=== PATIENT | female | born 1955 | race Caucasian/White ===

== ENCOUNTER 2018-04-17 12:20 | Emergency (ER) | payer MEDICAID, SELFPAY ==
[2018-04-17 12:24] VITALS: BP 136/77; PULSE 64; RESP 14; TEMP 36.6; O2SAT 96; BMI 27.4
[2018-04-17 12:28] VITALS: BP 136/77; PULSE 60; RESP 17; O2SAT 98
[2018-04-17 12:30] LABS: Bedside Glucose 92 mg/dL (70-110)
--- NOTE | 2018-04-17 12:49 | CT_ITS ---
STUDY: CTA NECK WITH CONTRAST REASON FOR EXAM: Female, 62 years old. Numbness. Recent CVA with right carotid arterial stenting. RADIATION DOSAGE (If Supplied By Facility): CTDIvol = ( 17.05 ) mGy, DLP = ( 1419.99 ) mGycm TECHNIQUE: CT angiography with multi-detector data acquisition was performed from the aortic arch to the skull base following intravenous administration of Isovue 370 100 IV. MIP images were reconstructed from the axial data set. Post-processing of the angiographic images was performed, with multiplanar reformation and 3D reconstruction. Individualized dose optimization techniques were used for this CT. COMPARISON: None. FINDINGS: Focal hypodensity with calcification in the inferior aspect of the right lobe of the thyroid. AORTIC ARCH: There is atherosclerotic calcific plaque formation of the aortic arch and great vessels arising from the aortic arch, without a hemodynamically significant stenosis. There is a normal origin of the brachiocephalic, left common carotid, and left subclavian arteries. RIGHT CAROTID ARTERIES: Normal right common carotid artery (CCA). Normal right common carotid bulb. Normal origin of the right internal carotid (ICA) artery without a hemodynamically significant stenosis. And endovascular stent is seen at the origin of the right internal carotid artery as well as proximal portion of the right internal carotid artery. No significant stenosis is seen. Normal visualized cervical portion of the right internal carotid artery. Normal origin of the right external carotid artery (ECA). LEFT CAROTID ARTERIES: Normal left common carotid artery (CCA). Normal left common carotid bulb. Normal origin of the left internal carotid (ICA) artery without a hemodynamically significant stenosis. Normal visualized cervical portion of the left internal carotid artery. Normal origin of the left external carotid artery (ECA). VERTEBRAL ARTERIES: There is enhancement within the bilateral vertebral arteries with a small left vertebral artery, and a dominant right vertebral artery. IMPRESSION: Status post stenting of the origin of the right internal carotid artery and proximal right internal carotid artery. No significant stenosis is seen. Electronically Signed: Roshan Alva, at 14:34 EST , Service support , STUDY: CTA OF THE BRAIN REASON FOR EXAM: Female, 62 years old. History of prior CVA. Recent carotid arterial stenting. RADIATION DOSAGE (If Supplied By Facility): CTDIvol = ( 17.05 ) mGy, DLP = ( 1419.99 ) mGycm TECHNIQUE: CT angiography was performed with a multi-detector CT scanner. Data acquisition was obtained from the skull base through the vertex following intravenous administration of Isovue 370 100 IV. MIP images were reconstructed from the axial data set. Post-processing of the angiographic images was performed, with multiplanar reformation and 3D reconstruction. Individualized dose optimization techniques were used for this CT. COMPARISON: None. FINDINGS: Normal bilateral petrous carotid arteries. Normal right cavernous carotid artery with a normal supraclinoid bifurcation. Normal left cavernous carotid artery with a normal supraclinoid bifurcation. Normal right A1 segments of the anterior cerebral artery. Normal left A1 segments of the anterior cerebral artery. Normal intact anterior communicating artery (ACOM). Normal bilateral A2 segments of the anterior cerebral arteries. Normal right M1 and M2 segments of the middle cerebral arteries, with a normal M1 bifurcation. Normal left M1 and M2 segments of the middle cerebral arteries, with a normal M1 bifurcation. Normal right posterior communicating artery (PCOM). Normal left posterior communicating artery (PCOM). Normal bilateral vertebral arteries. Normal basilar artery with a normal basilar bifurcation. The visualized bilateral superior cerebellar (SCA) arteries are normal. Normal bilateral P1, P2 and visualized P3 segments of the posterior cerebral arteries. There is no demonstrated aneurysm of the [place]. Cerebral atrophy. Calcification of the basal ganglia bilaterally. This a normal variant. There is evidence of old lacunar infarcts in the right basal ganglion. CT/CTA Head W/WO Contrast IMPRESSION: Normal [place] without a demonstrated aneurysm or hemodynamically significant stenosis. Electronically Signed: Roshan Alva, at 14:46 EST , Service support ,
--- NOTE | 2018-04-17 12:49 | CT_ITS ---
STUDY: CTA NECK WITH CONTRAST REASON FOR EXAM: Female, 62 years old. Numbness. Recent CVA with right carotid arterial stenting. RADIATION DOSAGE (If Supplied By Facility): CTDIvol = ( 17.05 ) mGy, DLP = ( 1419.99 ) mGycm TECHNIQUE: CT angiography with multi-detector data acquisition was performed from the aortic arch to the skull base following intravenous administration of Isovue 370 100 IV. MIP images were reconstructed from the axial data set. Post-processing of the angiographic images was performed, with multiplanar reformation and 3D reconstruction. Individualized dose optimization techniques were used for this CT. COMPARISON: None. FINDINGS: Focal hypodensity with calcification in the inferior aspect of the right lobe of the thyroid. AORTIC ARCH: There is atherosclerotic calcific plaque formation of the aortic arch and great vessels arising from the aortic arch, without a hemodynamically significant stenosis. There is a normal origin of the brachiocephalic, left common carotid, and left subclavian arteries. RIGHT CAROTID ARTERIES: Normal right common carotid artery (CCA). Normal right common carotid bulb. Normal origin of the right internal carotid (ICA) artery without a hemodynamically significant stenosis. And endovascular stent is seen at the origin of the right internal carotid artery as well as proximal portion of the right internal carotid artery. No significant stenosis is seen. Normal visualized cervical portion of the right internal carotid artery. Normal origin of the right external carotid artery (ECA). LEFT CAROTID ARTERIES: Normal left common carotid artery (CCA). Normal left common carotid bulb. Normal origin of the left internal carotid (ICA) artery without a hemodynamically significant stenosis. Normal visualized cervical portion of the left internal carotid artery. Normal origin of the left external carotid artery (ECA). VERTEBRAL ARTERIES: There is enhancement within the bilateral vertebral arteries with a small left vertebral artery, and a dominant right vertebral artery. IMPRESSION: Status post stenting of the origin of the right internal carotid artery and proximal right internal carotid artery. No significant stenosis is seen. Electronically Signed: Roshan Alva, at 14:34 EST , Service support , STUDY: CTA OF THE BRAIN REASON FOR EXAM: Female, 62 years old. History of prior CVA. Recent carotid arterial stenting. RADIATION DOSAGE (If Supplied By Facility): CTDIvol = ( 17.05 ) mGy, DLP = ( 1419.99 ) mGycm TECHNIQUE: CT angiography was performed with a multi-detector CT scanner. Data acquisition was obtained from the skull base through the vertex following intravenous administration of Isovue 370 100 IV. MIP images were reconstructed from the axial data set. Post-processing of the angiographic images was performed, with multiplanar reformation and 3D reconstruction. Individualized dose optimization techniques were used for this CT. COMPARISON: None. FINDINGS: Normal bilateral petrous carotid arteries. Normal right cavernous carotid artery with a normal supraclinoid bifurcation. Normal left cavernous carotid artery with a normal supraclinoid bifurcation. Normal right A1 segments of the anterior cerebral artery. Normal left A1 segments of the anterior cerebral artery. Normal intact anterior communicating artery (ACOM). Normal bilateral A2 segments of the anterior cerebral arteries. Normal right M1 and M2 segments of the middle cerebral arteries, with a normal M1 bifurcation. Normal left M1 and M2 segments of the middle cerebral arteries, with a normal M1 bifurcation. Normal right posterior communicating artery (PCOM). Normal left posterior communicating artery (PCOM). Normal bilateral vertebral arteries. Normal basilar artery with a normal basilar bifurcation. The visualized bilateral superior cerebellar (SCA) arteries are normal. Normal bilateral P1, P2 and visualized P3 segments of the posterior cerebral arteries. There is no demonstrated aneurysm of the [place]. Cerebral atrophy. Calcification of the basal ganglia bilaterally. This a normal variant. There is evidence of old lacunar infarcts in the right basal ganglion. CT/CTA Neck W/WO Contrast IMPRESSION: Normal [place] without a demonstrated aneurysm or hemodynamically significant stenosis. Electronically Signed: Roshan Alva, at 14:46 EST , Service support ,
--- NOTE | 2018-04-17 12:50 | EKG12_ITS ---
Test Reason : DYSRHYTHMIA Blood Pressure : / mmHG Vent. Rate : 055 BPM Atrial Rate : 055 BPM P-R Int : 168 ms QRS Dur : 090 ms QT Int : 416 ms P-R-T Axes : 000 009 022 degrees QTc Int : 397 ms Sinus bradycardia Otherwise normal ECG Confirmed by YUNIOR LION, TEJA ([id number]), supervising editor trailer CORNELIUS CANTU ([id number]) on 04/18/2018 3:41:16 PM Referred By: PERRI Confirmed By:TEJA MOJICA MD
[2018-04-17 13:07] LABS: Absolute Lymphocyte Count 2.75 X10^3/ul (0.83-4.51); Absolute Neutrophil Count 8.5 X10^3/uL (2.0-7.7); Basophil# 0.05 X10^3/uL; Basophil% 0.4 % (0-1); Eosinophil# 0.17 X10^3/uL; Eosinophils% 1.4 % (0-5); Hemoglobin 14.2 g/dl (12.0-15.0); Lymphocyte # 2.75 X10^3/ul (4.0); Lymphocyte % 22.6 % (19-41); Mean Corp Hgb Conc 31.6 g/gl (32-36); Mean Corpuscular Hgb 28.9 pg (27.0-32.0); Mean Corpuscular Volume 91.6 fL (81-99); Mean Platelet Vol. 9.8 fl (6.2-12.0); Monocyte# 0.68 X10^3/uL; Monocyte% 5.6 % (0-10); Neutrophil # 8.53 X10^3/uL (2.7-7.7); Neutrophil % 69.9 % (47-70); POSITIVE COUNT NO; POSITIVE DIFFERENTIAL NO; POSITIVE MORPHOLOGY NO; Platelet Count 367 K/mm3 (150-450); RBC Distribution Width CV 13.6 % (11.6-14.6); RBC Distribution Width SD 45.5 fl (35.1-43.9); Red Blood Count 4.91 M/mm3 (4.2-5.4); White Blood Count 12.2 K/mm3 (4.4-11.0)
[2018-04-17 13:14] LABS: Partial Thromboplast Time 27.9 Seconds (24.1-36.2); Prothrombin Time (Protime)PT. 13.2 SECONDS (11.7-14.9)
[2018-04-17 13:20] VITALS: BP 141/62; PULSE 61; RESP 16; O2SAT 97
[2018-04-17 13:20] LABS: Anion Gap 8 (5-15); BUN 21 mg/dL (7-18); BUN/Creat Ratio 25.2 RATIO (10-20); Calcium,Total 8.9 mg/dL (8.5-10.1); Chloride 105 mmol/L (98-107); Creatinine, Serum 0.83 mg/dL (0.55-1.02); EST Glomerular Filtration Rate 74 mL/min (>60); Est Glom Filt Rate - Afr Amer 89 mL/min (>60); Estimated Creatinine Clearance 62.24 ml/min; Glucose 98 mg/dL (74-106); Sodium Level 139 mmol/L (136-145)
--- NOTE | 2018-04-17 13:35 | RAD_ITS ---
STUDY: X-RAY CHEST REASON FOR EXAM: Female, 62 years old. Numbness and tingling in the extremities. TECHNIQUE: Single AP portable view of the chest. COMPARISON: None. FINDINGS: EKG electrodes are seen. The lungs are clear and expanded. There is no demonstrated pleural abnormality. Normal size heart. Normal mediastinum and lee. Normal visualized pulmonary arteries. There is atherosclerotic calcification of the aortic arch with tortuosity. Normal visualized thoracic spine. Normal visualized ribs, clavicles, and shoulders. There is no demonstrated abnormality of the visualized soft tissue structures of the upper abdomen. RAD/Chest 1 View IMPRESSION: No acute abnormality is seen. Electronically Signed: Roshan Alva, at 14:31 EST , Service support ,
[2018-04-17 14:00] VITALS: BP 141/62; PULSE 61; RESP 16; O2SAT 100
[2018-04-17 14:06] LABS: Bedside Glucose 81 mg/dL (70-110)
[2018-04-17 14:10] VITALS: BP 141/62; PULSE 61; RESP 16; O2SAT 100
[2018-04-17 14:15] VITALS: BMI 27.4
[2018-04-17 15:00] VITALS: BP 136/87; PULSE 63; RESP 16; O2SAT 96
--- NOTE | 2018-04-17 15:09 | MRI_ITS ---
STUDY: MRI BRAIN WITHOUT CONTRAST REASON FOR EXAM: Female, 62 years old. Left leg numbness and dysarthria TECHNIQUE: Standardized multiplanar fat and water weighted pulse sequences were obtained. COMPARISON: CTA of the brain on April 17, 2018 FINDINGS: Mild atrophy and moderate periventricular white matter ischemic changes.. There is a lesion within the right parietal lobe demonstrating T2 shine through consistent with prior infarct but no definitive evidence for restricted diffusion. There are chronic ischemic changes within the [place]. Small old lacunar infarct in right basal ganglia.. Normal thalami. There is no extra-axial fluid accumulation. Normal flow voids within the major intracranial circulation suggesting patency by spin echo criteria. Empty sella deformity of uncertain significance. Normal infundibular stalk, optic chiasm and hypothalamus. Normal tectal plate and pineal gland. Normal midbrain, and medulla. Normal cerebellum. Normal basal cisterns. Normal bilateral temporal bones. Normal bilateral internal auditory canals. No demonstrated orbital abnormality, within the constraints of a routine brain study. There is moderate mucosal thickening left maxillary sinus and minor mucosal thickening of the ethmoid air cells.. Normal calvarium and skull base. Normal visualized soft tissue structures. Normal visualized upper cervical spine. MRI/Brain without Contrast IMPRESSION: Moderate periventricular white matter ischemic changes without definitive evidence for acute infarct. Small old right basal ganglia lacunar infarct Other findings as above Electronically Signed: Beny Evangelista MD at 16:43 EST , Service support ,
--- NOTE | 2018-04-17 15:16 | ED.VISSUMM ---
- ER Visit Summary Date of Service: 04/17/18 Chief Complaint: Stroke History of Present Illness: The patient is a 62 F with concern for a stroke. The patient said her symptoms were noted when she woke up around 8 AM today. She went to physical therapy and the physical therapist encouraged her to be evaluated in the ED for stroke. She reports paresthesias in her left lips, right fingers, and right leg. She also said that she had some speech difficulty but could not elaborate further. She reports that on March 14 she was diagnosed with a stroke. She had presented with a headache and was sent to [facility] from an outside emergency department. She had a right carotid stent placed. She is taking aspirin and Plavix. She is a former smoker. Physical Examination: Afebrile and vital signs unremarkable. Head and neck are atraumatic. Heart regular rate and rhythm. Lungs clear. Abdomen soft and nontender. Cranial nerves grossly intact. Normal strength. She does report paresthesias in her left face, right hand, and right leg. NIH stroke scale is 1. Test Results: EKG showed sinus rhythm at a rate of 55. CBC showed a white count of 12.2. BUN 21. Coags normal. Troponin normal. Chest x-ray normal. CTA head and neck showed no aneurysm or stenosis. She has old lacunar infarcts in the right internal carotid artery stent in place. Emergency Department Course and Treatment: Patient presents with an NIH of 1. Patient has symptoms bilaterally. This is very atypical and so she did not meet criteria for stroke team or TPA. Workup done as above. Patient had no new or different symptoms on reevaluation. She was discussed with Dr. Mckeon. He advised checking MRI brain without contrast, and he advised increasing her Lipitor to 80 mg/day from 40 mg. The plan was discussed with the patient and the oncoming doctor. If the MRI is unremarkable, the patient will be discharged home. Treatment Plan: As above Disposition: Pending further evaluation Impression: 1. Paresthesias This note was generated with [employer] software. It may contain incorrect words, spelling, and punctuation that were not noted in review of the chart prior to signing ED Disposition - Plan for ED Patient: Referrals: Lady Mejia, GEORGIE-C [Primary Care Provider] -
--- NOTE | 2018-04-17 15:43 | ED.DEP ---
ED Disposition - Plan for ED Patient: Instructions: ED Paraesthesias Referrals: Lady Mejia, H[facility]ER-C [Primary Care Provider] - Additional Instructions: increase atorvastatin (Lipitor) to 80mg daily
--- NOTE | 2018-04-17 15:44 | DCINST.ED_ITS ---
ED Disposition - Plan for ED Patient: Instructions: ED Paraesthesias Referrals: Lady Mejia, [facility] TRIMMER-C [Primary Care Provider] - Additional Instructions: increase atorvastatin (Lipitor) to 80mg daily
== END 2018-04-17 16:55 | disposition home or self-care (01) ==
LOC: ED 13:18
PROVIDERS: Emergency Provider Emergency Medicine; Family Provider Nurse Practitioner Family; PCP Nurse Practitioner Family
DX: R20.2 Paresthesia of skin (principal); Z86.73 Personal history of transient ischemic attack (TIA), and cerebral infarction without residual deficits; Z87.891 Personal history of nicotine dependence
CPT/HCPCS: 70496; 70498; 70551; 71045; 80048; 82962; 84484; 85025; 85610; 85730; 93005; 99285; Q9967; A4216